=== PATIENT | female | born 1960 | race Caucasian/White ===

== ENCOUNTER 2024-07-01 09:00 | Outpatient (RCR) | payer MEDICAID, SELFPAY ==
--- NOTE | 2024-06-10 10:06 | PTNOTE_ITS ---
PT OP Initial Eval Patient Information Outpatient Physical Therapy Treatment Date: 06/10/24 Visit Reasons: NECK PAIN Medical Diagnosis: M54.2; M54.6 Treatment Dx #1: Neck Pain Treatment Dx #2: Mid Back Pain Start of Care: 06/10/24 Date of Onset: 1 year ago Smoking Status Smoking Status: Never smoker Initial Assessment Subjective: Pt is a 63 y/o female reports of chronic neck and mid back pain (02/11) with intermittent numbness down her hands. Pt's most recent xray showed advanced DDD of C6-C7 and compression fracture of T5,T8, and T9. No MRI has been done thus far. Pt has limitation with sitting, standing, lifting, chores, self care, gripping, and performing recreational activities. Objective: C/S and T/S AROM: all motions are WFL with end range pain into extension BUE AROM: all motions are WFL BUE MMTs: grossly 3+/5 Scapula MMTs: grossly 3/5 Assessment: Pt demonstrate c/s and t/s pain with mobility deficits leading to difficulty with ADLs. Pt will attempt physical therapy if pain persist Pt will be refer back to provider for further consultation. Short Term and Custodian Manager Goals 1) Increase spinal mobility WNL in 6 wks to be able to perform chores 2) Increase scapula MMTs grossly to 4-/5 in 6 wks to be able to perform lifting activities 3) Decrease neck pain to 2/10 in 6 wks to be able to sit and stand more than 30 mins 4) Increase BUE MMTs grossly to 4-/5 in 6 wks to be able to perform r ecreatioanal activities 5) Indep with HEP Treatment Plan 1) Manual Therapy 2) Therapeutic Activities 3) Therapeutic Exercises 4) Modalities (ice, heat) Frequency and Duration: 2 x wk for 6 wks Certification Dates: 06/10/24 to 09/10/24 Procedure Charges OP PT Eval Mod Complex 30 minutes: Yes
--- NOTE | 2024-06-16 11:24 | PT.ODAYNRPT ---
PT Outpatient Daily Note OP Daily Note Outpatient Physical Therapy Treatment Date: 06/16/24 Visit Reasons: NECK PAIN Subjective: Pt's neck pain is about the same. Objective: Please see flow chart for list of ther ex perfromed Assessment: patient demonstrate decrease neck pain post PT session; chin tuck with OP and suboccipital stretch reported to relieve pain Plan: Continue with PT Length of Time (minutes) of Treatment: 30 Minutes Procedure Charges Therapeutic Exercise 30 minutes: Yes
--- NOTE | 2024-06-25 09:38 | PT.ODAYNRPT ---
PT Outpatient Daily Note OP Daily Note Outpatient Physical Therapy Treatment Date: 06/25/24 Visit Reasons: NECK PAIN Subjective: Pt reports she felt good after her first PT session, minimal soreness present. Objective: Please see flow sheet for ther ex list. Assessment: Pt demonstrates good technique with interventions assigned post verbal cues and demonstrations. Plan: Continue with pOC. Length of Time (minutes) of Treatment: 30 Minutes Procedure Charges Therapeutic Exercise 30 minutes: Yes
--- NOTE | 2024-06-29 09:58 | PT.ODAYNRPT ---
PT Outpatient Daily Note OP Daily Note Outpatient Physical Therapy Treatment Date: 06/29/24 Visit Reasons: NECK PAIN Subjective: Pt's neck feels much better and does not have any concerns. Objective: Please see flow chart for list of ther ex performed Assessment: cues to correct t/s extension exercise to increase extension ROM during the exercises. Pt demonstrate improved c/s mobility with less pain noted. Plan: Continue with PT Length of Time (minutes) of Treatment: 30 Minutes Procedure Charges Therapeutic Exercise 30 minutes: Yes
--- NOTE | 2024-07-01 09:44 | PT.ODAYNRPT ---
PT Outpatient Daily Note OP Daily Note Outpatient Physical Therapy Treatment Date: 07/01/24 Visit Reasons: NECK PAIN Subjective: Pt reports neck and back have been feeling better. Objective: Please see flow sheet for ther ex list. Assessment: Added interventions completed with good tolerance indicating progress. Plan: Continue with POC. Length of Time (minutes) of Treatment: 30 Minutes Procedure Charges Therapeutic Exercise 30 minutes: Yes
== END 2024-07-04 23:59 | disposition home or self-care (01) ==
LOC: CPTX 09:00
PROVIDERS: PCP Nurse Practitioner Family; Referring Provider Nurse Practitioner Family; Visit Provider Nurse Practitioner Family
DX: M54.2 Cervicalgia (principal); M54.6 Pain in thoracic spine; G89.29 Other chronic pain; M50.323 Other cervical disc degeneration at C6-C7 level; M48.54XD Collapsed vertebra, not elsewhere classified, thoracic region, subsequent encounter for fracture with routine healing
CPT/HCPCS: 97110; 97162

== ENCOUNTER 2024-07-08 10:00 | Outpatient (RCR) | payer MEDICAID, SELFPAY ==
--- NOTE | 2024-07-06 11:58 | PT.ODAYNRPT ---
PT Outpatient Daily Note OP Daily Note Outpatient Physical Therapy Treatment Date: 07/06/24 Visit Reasons: neck pain Subjective: Pt's neck is better. Pt reports of minimal changes with mid back. Objective: Please see flow chart for list of ther ex performed Assessment: progressing with c/s AROM with minimal pain. Pt has decrease CT junction pain post PT session Plan: Continue with PT Length of Time (minutes) of Treatment: 30 Minutes Procedure Charges Therapeutic Exercise 30 minutes: Yes
--- NOTE | 2024-07-08 10:37 | PT.ODAYNRPT ---
PT Outpatient Daily Note OP Daily Note Outpatient Physical Therapy Treatment Date: 07/08/24 Visit Reasons: neck pain Subjective: Pt reports neck feels a little better but c/o stiff neck and back. Objective: Please see flow sheet for ther ex list. Assessment: Pt presents in clinic with little to no progress in symptoms of neck and t/s. Pt c/o stiffness and pain in cervical and thoracic spine. At this time pt has completed 7/7 visits, to follow up with referring doctor for other treatment options. Pt instructed on updated HEP, given a print out sheet for home. Plan: Dc, pt completed visits. Procedure Charges Therapeutic Exercise 30 minutes: Yes
--- NOTE | 2024-08-27 12:58 | PT.ODS1RPT ---
PT OP Progress/Discharge Note Date of Service: 08/27/24 Progress Note/DC Note Progress Note/Discharge Note: DC Note Patient Information Visit Reasons: neck pain Service Discharge Date: 08/27/24 Status Assessment: Pt has been seen for 8 visits (eval + 7 visits). Pt last treated on 07/08/24. Pt has not returned to therapy and will be d/c from care. Pt did not meet set goals in therapy; thank you for your referrals
== END 2024-08-04 23:59 | disposition home or self-care (01) ==
LOC: CPTX 10:00
PROVIDERS: PCP Nurse Practitioner Family; Referring Provider Nurse Practitioner Family; Visit Provider Nurse Practitioner Family
DX: M54.2 Cervicalgia (principal); M54.6 Pain in thoracic spine; G89.29 Other chronic pain; M50.323 Other cervical disc degeneration at C6-C7 level; M48.54XD Collapsed vertebra, not elsewhere classified, thoracic region, subsequent encounter for fracture with routine healing
CPT/HCPCS: 97110

== ENCOUNTER → 2024-09-11 | Outpatient (CLI) | payer MEDICAID, SELFPAY ==
--- NOTE | 2024-09-11 10:30 | XR_ITS ---
Examination: MRI cervical spine without intravenous contrast Date and time of exam: September 11, 2024 1126 hours INDICATIONS: Neck pain radiating down both arms and shoulders numbness in the hands 30 years worse the last year Technique: Multiple axial and sagittal sections of the cervical spine to been obtained. T2 weighted sagittal sections, TR 3, 270, TE 117 T1-weighted sagittal sections, TR 500, TE 11 T1-weighted axial sections, TR 607, TE 12, axial sections TR 18, TE 27 and T2 weighted transverse sections, TR 3920, TE 122. Findings: Adequate alignment cervical vertebral bodies No cervical fracture Diffuse cervical disc desiccation Mild disc narrowing C5-C6 advanced disc narrowing C6-C7 No localized enlargement cervical cord C2-C3 no disc protrusion C3-C4 no disc protrusion C4-C5 no disc protrusion C5-C6 no disc protrusion C6-C7 moderate left neural foraminal stenosis C7-T1 no disc protrusion IMPRESSION: Advanced degenerative disc disease C6-C7 C6-C7 moderate left neural foraminal stenosis
== END | disposition home or self-care (01) ==
LOC: SMRI 10:03
PROVIDERS: PCP Nurse Practitioner Family; Referring Provider Nurse Practitioner Family; Visit Provider Nurse Practitioner Family
DX: M48.02 Spinal stenosis, cervical region (principal); M50.323 Other cervical disc degeneration at C6-C7 level
CPT/HCPCS: 72141

== ENCOUNTER → 2024-10-06 | Outpatient (CLI) | payer MEDICAID, SELFPAY ==
--- NOTE | 2024-10-06 13:00 | XR_ITS ---
Examination: Screening digital mammography, bilateral Computer aided detection 3-D breast Tomosynthesis, bilateral Date and time of exam: October 06, 2024 1336 hours Compared to mammograms dating to October 08, 2009 Indication: Screening Technique: Nonmagnified MLO, CC views of the breasts to been obtained, reconstructed from 3-D Tomosynthesis images. R2 computer aided detection program utilized for evaluation of suspicious masses and/or abnormal calcifications. 3-D Tomosynthesis images obtained. Findings: Scattered areas of fibroglandular density. Benign calcifications. No interval suspicious masses Impression: BI-RADS category II: Benign Findings. Recommend 1 year follow-up mammogram.
== END | disposition home or self-care (01) ==
LOC: CDIM 13:23
PROVIDERS: Referring Provider Nurse Practitioner Family; Visit Provider Nurse Practitioner Family
DX: Z12.31 Encounter for screening mammogram for malignant neoplasm of breast (principal); R92.323 Mammographic fibroglandular density, bilateral breasts; R92.1 Mammographic calcification found on diagnostic imaging of breast
CPT/HCPCS: 77063; 77067